=== PATIENT | male | born 1950 | race Caucasian/White ===

== ENCOUNTER 2019-02-18 11:31 | Emergency (ER) | payer OTHER ==
[~2019-02-18] VITALS: Ht 182.9 cm; Wt 113.2 kg
[2019-02-18 11:35] VITALS: Ht 182.9 cm; Wt 113.2 kg
[2019-02-18] MEDS ORDERED: GLUCOTROL ER2.5 MG PO (11:39)
[2019-02-18 12:09] LABS: BASOPHILS 0.7 % (0-2); EOSINOPHILS 5.9 % (0-7); HEMATOCRIT 42.4 % (42.0-54.0); HEMOGLOBIN 14.9 g/dL (13.5-17.5); IMMATURE GRANULOCYTES 0.2 % (0-5); LYMPHOCYTES 19.5 % (15-50); MCH 33.4 pg (26.0-34.0); MCHC 35.1 g/dL (31.0-37.0); MCV 95.1 fL (80.0-100.0); MEAN PLATELET VOLUME 10.4 fL (7.4-10.4); MONOCYTES 10.5 % (2-11); NEUTROPHILS 63.2 % (40-80); PLATELET COUNT 164 10x3/uL (130-400); RBC 4.46 10x6/uL (4.20-6.10); RDW 13.4 % (11.5-14.5); WBC 6.1 10x3/uL (4.8-10.8)
[2019-02-18 12:19] LABS: APTT 27.5 SECONDS (22.8-39.4); INR 0.95 (0.85-1.17); PROTIME 12.2 SECONDS (11.6-15.0)
[2019-02-18 12:26] LABS: ALBUMIN 3.9 g/dL (3.4-5.0); ALKALINE PHOSPHATASE 51 U/L (46-116); ALT (SGPT) 36 U/L (10-68); BILIRUBIN - TOTAL 0.74 mg/dL (0.2-1.3); CALC OSMOLALITY 288 mosm/kg (275-300); CALCIUM 9.3 mg/dL (8.5-10.1); CARBON DIOXIDE 29.4 mmol/L (21.0-32.0); CHLORIDE - SERUM 104 mmol/L (98-107); CREATININE - SERUM 1.1 mg/dL (0.6-1.3); GLUCOSE 107 mg/dL (74-106); POTASSIUM - SERUM 5.2 mmol/L (3.5-5.1); PROTEIN - SERUM 7.1 g/dL (6.4-8.2); SODIUM 141 mmol/L (136-145); UREA NITROGEN 34 mg/dL (7-18); eGFR NON AFRICAN AMERICAN 71 mL/min (90-120)
[2019-02-18 12:52] LABS: CREATINE KINASE 135 UL (21-232); MAGNESIUM - SERUM 1.9 mg/dL (1.8-2.4); THYROID STIMULATING HORMONE 1.33 uIU/mL (0.36-3.74); TROPONIN-I 0.018 ng/mL (0.000-0.060)
[2019-02-18 13:25] LABS: CKMB 2.8 U/L (0.0-3.6)
[2019-02-18] MEDS ORDERED: MECLIZINE HCL25 MG PO (14:33)
[2019-02-18 15:00] VITALS: BP 118/62
== END 2019-02-18 15:10 | disposition home or self-care (01) ==
LOC: D.ER 11:31
PROVIDERS: Family Medicine
DX: R42 Dizziness and giddiness (principal); F41.9 Anxiety disorder, unspecified

== ENCOUNTER → 2020-11-01 09:48 | Outpatient (CLI) | payer OTHER ==
[2019-02-18 11:35] VITALS: BMI 33.8
[~2020-11-01 09:48] MED LIST: GLUCOTROL ER2.5 MG PO; MECLIZINE HCL25 MG PO
--- NOTE | 2020-11-02 08:32 | EC ---
PATIENT:BRENT HENSON DATE OF SERVICE: 11/01/20 SEX: M MEDICAL RECORD: [id number] DATE OF : 54 [facility] AGE OF PATIENT: 70 ADMISSION DATE: 11/01/20 REFERRING PHYSICIAN: INTERPRETING PHYSICIAN: LOAN FLORES MD ECHOCARDIOGRAM REPORT ECHO CHARGES 4 ECHO COMPLETE Date: 11/01/20 CLINICAL DIAGNOSIS: AORTIC STENOSIS, ASSESS EF, HX:ENDOCARDITIS ECHOCARDIOGRAPHIC MEASUREMENTS (adult normal given) AC root (d.<3.7cm) 3.8 cm LV Septum d (<1.2 cm> 1.5 cm Valve Excursion 1.6 cm LV Septum (systole) 1.6 cm Left Atria (s.<4.0cm> 4.2 cm LVPW d(<1.2cm) 1.1 cm RV (d.<2.3cm) 3.9 cm LVPW (sytole) 1.3 cm LV diastole(<5.6CM) 4.9 cm MV E-F(>70mm/sec) cm LV systole 3.8 cm LVOT Diameter 2.0 cm MV exc.(>10mm) 0.8 cm Est.ejection fraction (50-75%) % DOPPLER: LVIT cm/sec A 107 cm/sec E 89 cm/sec LA cm/sec RVSP 18 mmHg LVOT 104 cm/sec AOP1/2T m/s Asc. Ao 272 cm/sec RVOT 76 cm/sec RA cm/sec PA 74 cm/sec AV Gradient Peak 29.5 mmHg AV Mean 21.2 mmHg AV Area 1.2 cm MV Gradient Peak 4.8 mmHg MV Mean 2.3 mmHg MV Area cm COMMENTS: Sports Medicine Trainer: Erica DIEZ Railroad Firer: 3 Dr. Swain TAPE# Pericardial Effusion N DATE OF SERVICE: Adequate 2D, color-flow imaging, spectral Doppler, and M-Mode FINDINGS: LVH is present. LV internal dimensions are normal. Wall motion is normal. EF is greater than or equal to 55%. Aortic valve is calcified with restriction of leaflet motion. Peak gradient of 29.5 mmHg, putting this right at [id number] range. There is mild AI present as well. Left atrium is minimally dilated at 4.2 cm. Mitral valve shows no prolapse. Trace MR. Right side is grossly normal. Trace TR. ECHOCARDIOGRAM REPORT [id number] BRENT HENSON TRANSINT:[id number] Voice Confirmation ID: [id number] DOCUMENT ID: [id number] LOAN FLORES MD at 0832 CC: [id number] DICTATION DATE: 11/01/20 145 MARBLE [place]ON: 11/01/20 1713 DEP CLI 11/01/20 [place] [id number] [place] [id number]
== END | disposition home or self-care (01) ==
LOC: D.ECHO 09:48
PROVIDERS: ATTEND Family Medicine
DX: I06.8 Other rheumatic aortic valve diseases (principal)